=== PATIENT | male | born 1930 | race Caucasian/White ===

== ENCOUNTER 2019-02-21 16:06 | Observation (INO) ==
[2019-02-21 17:21] LABS: Basophils # 0.1 10*3/uL (0.0-0.2); Basophils % 0.4 % (0.0-0.8); Eosinophils % 0.1 % (0.00-10.9); Hematocrit 43.1 VOL% (42.0-52.0); Hemoglobin 14.5 GM/DL (14.0-18.0); Immature Granulocytes % 0.7 %; Lymphocytes # 2.3 10*3/uL (1.4-4.0); Lymphocytes % 15.1 % (21.2-54.2); Mean Corpuscular HGB Conc 33.6 GM/DL (32-36); Mean Corpuscular Volume 95.1 FL (87-102); Mean Platelet Volume 11.1 FL (9.6-12.0); Monocytes % 6.1 % (1.7-12.7); Neutrophils % 77.6 % (38.7-73.9); Platelet Count 231 T/CUMM (130-400); Red Blood Count 4.53 MC/CUMM (3.8-5.5); Red Cell Distribution Width 11.9 % (9.3-17.3); White Blood Count 15.2 T/CUMM (4-12)
[2019-02-21 17:46] LABS: Albumin 3.5 G/DL (3.4-5.0); Bilirubin,Total 0.7 MG/DL (0.2-1.0); Calcium 9.2 MG/DL (8.5-10.1); Total Protein 7.7 G/DL (6.4-8.3)
[2019-02-21 17:47] LABS: Osmolality,Calculated 288.1 MOS/KG (273-304)
[2019-02-21] MEDS ORDERED: traMADol 50 MG TABLET PO STA (18:14)
[2019-02-21] MEDS ORDERED: SODIUM CHLORIDE 0.9% 500 ML IV STA (19:17)
[2019-02-21] MEDS ORDERED: ONDANSETRON 4 MG/2 ML VIAL IV ONE (19:58)
[2019-02-21] MEDS ORDERED: MORPHINE 4 MG/1 ML VIAL IV STA (19:58)
[2019-02-21 20:21] LABS: Apearance,Urine Slightly Hazy (Clear); Bacteria,Urine Occasional /HPF (Few); Bilirubin,Urine Negative (Negative); Blood, Urine Negative (Negative); Glucose,Urine (UA) Negative (Negative); Hyaline Casts,Urine 11 /LPF (0-3); Ketones,Urine 5 mg/dL (Negative); Mucus,Urine Many /LPF (Occasional); Nitrite,Urine Negative (Negative); Protein,Urine 30 MG/DL; Squamous Epithelial Cell,Urine Occasional /HPF (0-10); Urine Color Amber (Yellow); Urine Specific Gravity 1.026 (1.001-1.035); WBC,Urine 4 /HPF (0-6)
[2019-02-21] MEDS ORDERED: ENOXAPARIN 30 MG/0.3 ML SYRINGE SUBCUT SCH (21:00)
[2019-02-21] MEDS ORDERED: PROMETHAZINE 25 MG TABLET PO PRN (21:11)
[2019-02-21] MEDS: cefTRIAXone 1,000 MG in SYRINGE 1 EACH IV SCH (22:12)
[2019-02-21] MEDS: DEXTROSE 5% NACL 0.45% 1,000 ML IV SCH (22:13)
[2019-02-22 04:58] LABS: Basophils % 0.5 % (0.0-0.8); Eosinophils % 0.3 % (0.00-10.9); Hemoglobin 11.7 GM/DL (14.0-18.0); Immature Granulocytes % 0.7 %; Immature Granulocytes Absolute 0.06 #; Lymphocytes % 22.9 % (21.2-54.2); Mean Corpuscular HGB Conc 33.4 GM/DL (32-36); Mean Corpuscular Volume 96.4 FL (87-102); Mean Platelet Volume 11.5 FL (9.6-12.0); Monocytes % 8.2 % (1.7-12.7); Neutrophils % 67.4 % (38.7-73.9); Platelet Count 184 T/CUMM (130-400); Red Blood Count 3.63 MC/CUMM (3.8-5.5); White Blood Count 8.6 T/CUMM (4-12)
[2019-02-22 05:39] LABS: Calcium 8.4 MG/DL (8.5-10.1); Osmolality,Calculated 290.1 MOS/KG (273-304)
[2019-02-22] MEDS: DEXTROSE 5% NACL 0.45% 1,000 ML IV SCH ×2 (07:58→17:52)
[2019-02-22] MEDS: CITALOPRAM 40 MG TABLET PO SCH (08:00)
[2019-02-22] MEDS: MONTELUKAST 10 MG TABLET PO SCH (08:00)
[2019-02-22] MEDS: ASPIRIN EC 81 MG TABLET PO SCH (08:00)
[2019-02-22] MEDS: ACETAMINOPHEN 325 MG TABLET PO PRN ×2 (08:06→14:09)
[2019-02-22] MEDS ORDERED: HydrOXYzine PAMOATE 25 MG CAPSULE PO PRN (14:15)
[2019-02-22] MEDS ORDERED: LOPERAMIDE 2 MG CAPSULE PO PRN (14:16)
[2019-02-22] MEDS: traMADol 50 MG TABLET PO PRN ×2 (14:26→20:05)
[2019-02-22] MEDS: PANTOPRAZOLE 40 MG TABLET PO SCH (14:27)
[2019-02-22] MEDS: cefTRIAXone 1,000 MG in SYRINGE 1 EACH IV SCH (20:06)
[2019-02-22] MEDS ORDERED: ENOXAPARIN 40 MG/0.4 ML SYRINGE SUBCUT SCH (21:00)
[2019-02-22] MEDS ORDERED: SIMVASTATIN 40 MG TABLET PO SCH (21:00)
[2019-02-23] MEDS: DEXTROSE 5% NACL 0.45% 1,000 ML IV SCH (04:08)
[2019-02-23 07:33] VITALS: BP 124/68
[2019-02-23] MEDS: CITALOPRAM 40 MG TABLET PO SCH (08:33)
[2019-02-23] MEDS: traMADol 50 MG TABLET PO PRN (08:33)
[2019-02-23] MEDS: PANTOPRAZOLE 40 MG TABLET PO SCH (08:34)
[2019-02-23] MEDS: ASPIRIN EC 81 MG TABLET PO SCH (08:35)
[2019-02-23] MEDS: MONTELUKAST 10 MG TABLET PO SCH (08:35)
== END 2019-02-23 11:49 | disposition home or self-care (01) ==
LOC: N.ED 16:06 → N.EDINP 16:06 → N.2E 21:23
PROVIDERS: ADMIT Hospitalist; ATTEND Hospitalist

== ENCOUNTER 2019-04-11 05:55 | Observation (INO) ==
[2019-04-11 06:47] LABS: Basophils # 0.1 10*3/uL (0.0-0.2); Basophils % 0.3 % (0.0-0.8); Eosinophils % 0.2 % (0.00-10.9); Hematocrit 39.5 VOL% (42.0-52.0); Hemoglobin 13.7 GM/DL (14.0-18.0); Immature Granulocytes % 1.1 %; Immature Granulocytes Absolute 0.25 #; Lymphocytes # 2.1 10*3/uL (1.4-4.0); Lymphocytes % 9.5 % (21.2-54.2); Mean Corpuscular HGB Conc 34.7 GM/DL (32-36); Mean Corpuscular Volume 97.5 FL (87-102); Mean Platelet Volume 11.5 FL (9.6-12.0); Monocytes % 5.5 % (1.7-12.7); Neutrophils % 83.4 % (38.7-73.9); Platelet Count 183 T/CUMM (130-400); Red Blood Count 4.05 MC/CUMM (3.8-5.5); Red Cell Distribution Width 12.4 % (9.3-17.3); White Blood Count 22.4 T/CUMM (4-12)
[2019-04-11 06:50] LABS: PT Patient Result 11.1 SECS (9.6-12.2)
[2019-04-11 06:53] LABS: Calcium 9.6 MG/DL (8.5-10.1); Osmolality,Calculated 289.3 MOS/KG (273-304)
[2019-04-11 07:14] LABS: Lymphocytes 6 % (20-55); Segmented Neutrophils 92 % (50-85); Total Cells Counted 100
[2019-04-11 07:15] LABS: Microcytosis Slight
[2019-04-11] MEDS ORDERED: LEVOFLOXACIN INJ 500 MG in PREMIX 1 EACH IV STA (07:29)
[2019-04-11 08:11] LABS: Apearance,Urine CLEAR (Clear); Bilirubin,Urine Negative (Negative); Blood, Urine Negative (Negative); Glucose,Urine (UA) Negative (Negative); Ketones,Urine Negative (Negative); Mucus,Urine Occasional /LPF (Occasional); Nitrite,Urine Negative (Negative); Protein,Urine Negative; RBC,Urine 1 /HPF (0-4); Urine Color Amber (Yellow); Urine Specific Gravity 1.021 (1.001-1.035); WBC,Urine <1 /HPF (0-6)
[2019-04-11] MEDS ORDERED: ONDANSETRON 4 MG/2 ML VIAL IV PRN (08:45)
[2019-04-11] MEDS ORDERED: LOPERAMIDE 2 MG CAPSULE PO PRN (08:48)
[2019-04-11] MEDS: SODIUM CHLORIDE 0.9% 1,000 ML IV SCH ×2 (12:03→21:35)
[2019-04-11] MEDS: CITALOPRAM 40 MG TABLET PO SCH (12:03)
[2019-04-11] MEDS: MONTELUKAST 10 MG TABLET PO SCH (12:03)
[2019-04-11] MEDS: MEMANTINE 5 MG TABLET PO SCH ×2 (12:03→21:36)
[2019-04-11] MEDS: PANTOPRAZOLE 40 MG TABLET PO SCH (12:03)
[2019-04-11] MEDS: ENOXAPARIN 40 MG/0.4 ML SYRINGE SUBCUT SCH (12:03)
[2019-04-11] MEDS: ASPIRIN EC 81 MG TABLET PO SCH (12:04)
[2019-04-11] MEDS ORDERED: diphenhydrAMINE CAP 25 MG CAPSULE PO ONE (21:24)
[2019-04-11] MEDS: SIMVASTATIN 80 MG TABLET PO SCH (21:36)
[2019-04-12 04:53] LABS: Basophils % 0.1 % (0.0-0.8); Eosinophils % 0.1 % (0.00-10.9); Hemoglobin 10.9 GM/DL (14.0-18.0); Immature Granulocytes % 0.7 %; Immature Granulocytes Absolute 0.13 #; Lymphocytes # 2.3 10*3/uL (1.4-4.0); Lymphocytes % 12.3 % (21.2-54.2); Mean Corpuscular HGB Conc 34.1 GM/DL (32-36); Mean Corpuscular Volume 97.6 FL (87-102); Mean Platelet Volume 11.6 FL (9.6-12.0); Monocytes % 6.3 % (1.7-12.7); Neutrophils % 80.5 % (38.7-73.9); Platelet Count 180 T/CUMM (130-400); Red Blood Count 3.28 MC/CUMM (3.8-5.5); Red Cell Distribution Width 12.6 % (9.3-17.3); White Blood Count 18.5 T/CUMM (4-12)
[2019-04-12 05:37] LABS: Albumin 2.6 G/DL (3.4-5.0); Bilirubin,Total 1.4 MG/DL (0.2-1.0); Calcium 8.8 MG/DL (8.5-10.1); Osmolality,Calculated 285.3 MOS/KG (273-304); Risk Ratio 2.52; Thyroid Stimulating Hormone 1.35 uIU/ml (0.358-3.74); Total Protein 6.4 G/DL (6.4-8.3); VLDL CHOLESTEROL 15.6 MG/DL
[2019-04-12] MEDS: SODIUM CHLORIDE 0.9% 1,000 ML IV SCH ×3 (06:03→18:40)
[2019-04-12] MEDS: LEVOFLOXACIN INJ 250 MG in PREMIX 1 EACH IV SCH (06:35)
[2019-04-12] MEDS: CITALOPRAM 40 MG TABLET PO SCH (08:18)
[2019-04-12] MEDS: ASPIRIN EC 81 MG TABLET PO SCH (08:18)
[2019-04-12] MEDS: MEMANTINE 5 MG TABLET PO SCH ×2 (08:18→20:37)
[2019-04-12] MEDS: MONTELUKAST 10 MG TABLET PO SCH (08:18)
[2019-04-12] MEDS: PANTOPRAZOLE 40 MG TABLET PO SCH (08:18)
[2019-04-12] MEDS: ENOXAPARIN 40 MG/0.4 ML SYRINGE SUBCUT SCH (10:02)
[2019-04-12] MEDS ORDERED: CARBOXYMETHYLCELLULOSE 1% OPH SOLN BOTH EYES PRN (16:03)
[2019-04-12] MEDS: SIMVASTATIN 80 MG TABLET PO SCH (20:37)
[2019-04-13] MEDS: SODIUM CHLORIDE 0.9% 1,000 ML IV SCH ×3 (01:53→20:36)
[2019-04-13 06:05] LABS: Basophils % 0.3 % (0.0-0.8); Eosinophils % 0.3 % (0.00-10.9); Hematocrit 33.3 VOL% (42.0-52.0); Hemoglobin 11.4 GM/DL (14.0-18.0); Immature Granulocytes % 0.9 %; Lymphocytes # 2.1 10*3/uL (1.4-4.0); Lymphocytes % 18.4 % (21.2-54.2); Mean Corpuscular HGB Conc 34.2 GM/DL (32-36); Mean Corpuscular Volume 97.1 FL (87-102); Mean Platelet Volume 11.2 FL (9.6-12.0); Monocytes % 8.5 % (1.7-12.7); Neutrophils % 71.6 % (38.7-73.9); Platelet Count 169 T/CUMM (130-400); Red Blood Count 3.43 MC/CUMM (3.8-5.5); Red Cell Distribution Width 12.7 % (9.3-17.3); White Blood Count 11.6 T/CUMM (4-12)
[2019-04-13] MEDS: LEVOFLOXACIN INJ 250 MG in PREMIX 1 EACH IV SCH (06:14)
[2019-04-13 06:29] LABS: Albumin 2.3 G/DL (3.4-5.0); Bilirubin,Total 1.1 MG/DL (0.2-1.0); Calcium 8.4 MG/DL (8.5-10.1); Osmolality,Calculated 280.4 MOS/KG (273-304); Total Protein 6.5 G/DL (6.4-8.3)
[2019-04-13] MEDS: CITALOPRAM 40 MG TABLET PO SCH (10:30)
[2019-04-13] MEDS: MONTELUKAST 10 MG TABLET PO SCH (10:30)
[2019-04-13] MEDS: PANTOPRAZOLE 40 MG TABLET PO SCH (10:30)
[2019-04-13] MEDS: ENOXAPARIN 40 MG/0.4 ML SYRINGE SUBCUT SCH (10:30)
[2019-04-13] MEDS: MEMANTINE 5 MG TABLET PO SCH ×2 (10:30→20:37)
[2019-04-13] MEDS: ASPIRIN EC 81 MG TABLET PO SCH (10:30)
[2019-04-13] MEDS ORDERED: PHENOL 1.4% THROAT SPRAY 177 ML BOTTLE PO PRN (16:05)
[2019-04-13] MEDS: SIMVASTATIN 80 MG TABLET PO SCH (20:37)
[2019-04-14] MEDS: SODIUM CHLORIDE 0.9% 1,000 ML IV SCH ×3 (02:03→09:37)
[2019-04-14] MEDS: LEVOFLOXACIN INJ 250 MG in PREMIX 1 EACH IV SCH (06:11)
[2019-04-14] MEDS: ENOXAPARIN 40 MG/0.4 ML SYRINGE SUBCUT SCH (09:36)
[2019-04-14] MEDS: CITALOPRAM 40 MG TABLET PO SCH (09:36)
[2019-04-14] MEDS: PANTOPRAZOLE 40 MG TABLET PO SCH (09:36)
[2019-04-14] MEDS: MEMANTINE 5 MG TABLET PO SCH (09:36)
[2019-04-14] MEDS: MONTELUKAST 10 MG TABLET PO SCH (09:36)
[2019-04-14] MEDS: ASPIRIN EC 81 MG TABLET PO SCH (09:36)
[2019-04-14 11:15] VITALS: BP 118/61
== END 2019-04-14 11:27 | disposition home health service (06) ==
LOC: EDBD → EDUNIT# → N.ED 05:55 → N.EDINP 05:55 → SUATTDRO 08:45 → N.EDINP 09:53 → N.5E 10:14
PROVIDERS: ADMIT Internal Medicine; ATTEND Internal Medicine